=== PATIENT | male | born 1990 | race Caucasian/White ===

== ENCOUNTER 2019-09-22 08:30 | Day surgery (SDC) | payer OTHER ==
[2019-09-21 14:51] VITALS: BP 148/89
[2019-09-21 15:16] LABS: POTASSIUM 4.2 mmol/L (3.5-5.1)
[2019-09-21 15:17] LABS: CREATININE 1.1 mg/dL (0.5-1.5)
[2019-09-21 16:03] LABS: BASOPHILS % (AUTO) 0.6 % (0.0-5.0); EOSINOPHILS % (AUTO) 1.8 % (0.0-8.0); HEMATOCRIT 45.1 % (42-54); MEAN CORPUSCULAR HEMOGLOBIN 30.9 pg (27.0-33.0); MEAN CORPUSCULAR HGB CONC 34.2 g/dL (32.0-36.0); MEAN CORPUSCULAR VOLUME 90.4 fL (79-99); NEUTROPHILS % (AUTO) 59.6 % (40.0-77.0); PLATELET COUNT (AUTO) 161 K/uL (130-400); RED BLOOD CELL COUNT(AUTO) 4.99 MIL/uL (4.50-6.20); RED CELL DISTRIBUTION WIDTH 13.3 % (11.0-15.5); WHITE BLOOD COUNT (AUTO) 7.4 K/uL (4.8-10.8)
[~2019-09-22] VITALS: Ht 182.9 cm; Wt 104.5 kg
[2019-09-22] VITALS (12 sets, daily range): BP systolic 120–138; BP diastolic 60–83
[~2019-09-22 08:30] MED LIST: NAPR-1023 PO
[2019-09-22] MEDS ORDERED: LACTATED RINGERS 1000ML 1,000 ML IV ONE (08:51)
[2019-09-22] MEDS: CEFAZOLIN SODIUM 1 GM VIAL IVP ONE ×2 (08:53→10:30)
[2019-09-22] MEDS ORDERED: MIDAZOLAM HCL 1 MG/ML 2ML VIAL ONE (09:45)
[2019-09-22] MEDS ORDERED: LIDOCAINE PF 2% 5ML ABBOJECT ONE (09:45)
[2019-09-22] MEDS ORDERED: FENTANYL CITRATE PF 50 MCG/1 ML 2ML VIAL ONE (09:45)
[2019-09-22] MEDS ORDERED: PROPOFOL 10 MG/ML 20ML VIAL IV ONE (09:45)
[2019-09-22] MEDS ORDERED: ROPIVACAINE 0.5% 5MG/ML 30ML IJ ONE (09:48)
[2019-09-22] MEDS ORDERED: SUCCINYLCHOLINE 200MG/10ML SYR ONE (10:21)
[2019-09-22] MEDS ORDERED: ROCURONIUM 10MG/1ML SYR 10 MG/ML ML ONE (10:21)
[2019-09-22] MEDS ORDERED: ONDANSETRON HCL 4 MG/2 ML VIAL ONE (10:57)
[2019-09-22] MEDS ORDERED: DEXAMETHASONE SOD PHOSPHATE 10MG/ML 1ML VIAL ONE (10:57)
[2019-09-22] MEDS ORDERED: CEFAZOLIN SODIUM 1 GM VIAL ONE (10:58)
[2019-09-22] MEDS ORDERED: NEOSTIGMINE 5MG/5ML SYR IV ONE (11:12)
[2019-09-22] MEDS ORDERED: GLYCOPYRROLATE 1 MG/5 ML SYRINGE ONE (11:12)
[2019-09-22] MEDS ORDERED: PHENYLEPHRINE HCL 10 MG/ML 1ML VIAL IV ONE (11:41)
[2019-09-22] MEDS ORDERED: KETOROLAC TROMETHAMINE 30MG/ML ONE (11:58)
[2019-09-22] MEDS ORDERED: HYDR-4457 PO (12:21)
[2019-09-22] MEDS ORDERED: NAPR-1023 PO (12:21)
[2019-09-22] MEDS ORDERED: CEPH500B PO (12:21)
[2019-09-22] MEDS ORDERED: MEPERIDINE-PF 25 MG/ML SYG ONE ×2 (12:46→13:07)
--- NOTE | 2019-09-22 14:10 | NUR ---
PT LEFT VIA WHEELCHAIR IN PVT CAR. RX SCRIPTS GIVEN TO MOTHER ALONG WITH D/C INSTRUCTIONS AND F/U APPT. NO COMPLICATIONS UPON D/C
== END 2019-09-22 14:10 ==
LOC: DAH 08:30
PROVIDERS: ATTEND Orthopaedic Surgery
DX: M22.11 Recurrent subluxation of patella, right knee (principal); M22.41 Chondromalacia patellae, right knee; M25.561 Pain in right knee; F17.210 Nicotine dependence, cigarettes, uncomplicated; Z79.899 Other long term (current) drug therapy; Z72.89 Other problems related to lifestyle; Z79.2 Long term (current) use of antibiotics; Z82.49 Family history of ischemic heart disease and other diseases of the circulatory system
CPT/HCPCS: 27425; 29874; 36415; 64447; 76942; 80048; 85025; 88304; 88311; A4215; A4221; A4222; A4223; A4606; A4649 ×2; A4663; A4930 ×2; A5120; G0168; J0330; J0690 ×2; J1100; J1885; J2001; J2175 ×2; J2250; J2370; J2405; J2704; J2710; J2795; J3010; J3490; J7120